=== PATIENT | female | born 1930 | race Caucasian/White ===

== ENCOUNTER 2016-11-02 13:42 | Emergency (ER) | payer MEDICARE, OTHER ==
[~2016-11-02] VITALS: Ht 154.9 cm; Wt 61.5 kg
--- NOTE | ~2016-11-02 | CT71 ---
[facility] A Service [facility] RADIOLOGY TEXT RESULTS PATIENT: ZIYAD CIFUENTES LOCATION: [facility] : 34 UNIT #: [id number] AGE: [address]: Troy Chance MD SEX: F ORDER DR: [id number] [facility] [address] [place], [place] [address] [id number] MR#: [id number] Acc #: [id number] NAME: ZIYAD CIFUENTES. : 1930 SEX: F STUDY DATE/TIME: 11/02/2016 14:41 UNIT: [facility] ROOM: STUDY DESCRIPTION: CT Head Wo Contrast Attending Physician: Troy Chance M.D. Ordering Physician: Troy Chance M.D. Primary Care Physician: No Primary Care Physician MEDICAL IMAGING REPORT This report is preliminary unless electronic signature is present EXAM CT scan of the head without contrast. INDICATIONS Fell outside today with laceration of the head. Right-sided headache since injury. COMPARISON 12/02/2015 TECHNIQUE Unenhanced images were obtained through the brain. This CT exam was performed with one or more of the following radiation dose reduction techniques: automatic exposure control, adjustment of mA and/or kV according to patient size, and iterative reconstruction. FINDINGS There is generalized atrophy with minimal small vessel ischemic changes. There are no masses or extraaxial fluid collections or hemorrhage. There has been no change. IMPRESSION Stable atrophy and small vessel ischemic changes. No acute findings. Dictated by... Jb Brown M.D. THIS IS AN ELECTRONICALLY VERIFIED REPORT Jb Brown M.D. at 11/03/2016 9:19 AM [facility] A Service [facility] RADIOLOGY TEXT RESULTS PATIENT: ZIYAD CIFUENTES LOCATION: [facility] : 34 UNIT #: [id number] AGE: [address]: Troy Chance MD SEX: F ORDER DR: Amanda TD: 11/02/2016 23:21 JOB #: [id number] MEDICAL IMAGING REPORT Page 1 of 1 COPY
[~2016-11-02 13:42] MED LIST: ACETAMINOPHEN PO; ALPRAZOLAM PO; ASPIRIN PO; BACTRIM DS TABL1 TAB PO; BENZONATATE PO; BP MED; CELEBREX PO; CERTAGEN PO; CIPRO500 MG/5 M PO; DARVOCET-N 1001 TAB PO; DOXYCYCLINE HY100 M1 PO; KLONOPIN PO; LEVAQUIN PO; LEXAPRO; LEXAPRO PO; LISINOPRIL20 MG; LOPRESSOR PO; MEDI-MECLIZINE25 M1 PO; MEDROL PO; METOPROLOL SUCC25 MG PO; NEXIUM PO; NORVASC PO; OMEPRAZOLE40 M1 PO; OTC ALLERGY MED; PROMETHAZINE HC25 MG PO; REMERON15 MG PO; SYNTHROID PO; SYNTHROID125 PO; TOPROL XL PO; TRAZODONE; TYLOX 5/500 CAP1 CAP PO; VOLTAREN50 MG PO; WALKER; ZESTORETIC 20/21 TAB PO; ZITHROMAX PO; ZOFRAN ODT4 MG PO; ZOFRAN ODT4 MG SL; ZOFRAN PO
== END 2016-11-02 16:01 | disposition home or self-care (01) ==
LOC: CED 13:42
DX: S09.90XA Unspecified injury of head, initial encounter (principal); S01.81XA Laceration without foreign body of other part of head, initial encounter; I10 Essential (primary) hypertension; J44.9 Chronic obstructive pulmonary disease, unspecified; M54.5 Low back pain; G89.29 Other chronic pain; W01.0XXA Fall on same level from slipping, tripping and stumbling without subsequent striking against object, initial encounter; Y92.009 Unspecified place in unspecified non-institutional (private) residence as the place of occurrence of the external cause
CPT/HCPCS: 12011; 70450; 99284